=== PATIENT | male | born 1995 | race Caucasian/White ===

== ENCOUNTER → 2020-01-06 | Outpatient (REF) | payer BC, OTHER ==
[2020-01-06 14:28] LABS: SEMEN APPEARANCE OPAQUE (OPAQUE); SEMEN VISCOSITY LIQUID (LIQUID); SEMEN VOLUME 2.2 ml (2.0-5.0); WBC CONCENTRATION >1 M/ml (<=1 M/ml)
[2020-01-06 14:29] LABS: SPERM CONCENTRATION 39.5 M/ml (>=15.0)
== END ==
LOC: M SMT 14:19
PROVIDERS: ATTEND Nurse Practitioner Women's Health
DX: N46.9 Male infertility, unspecified (principal)